=== PATIENT | female | born 1985 | race Caucasian/White ===

== ENCOUNTER 2017-09-22 21:00 | Emergency (ER) | payer OTHER ==
[~2017-09-22] VITALS: Ht 170.2 cm; Wt 163.5 kg
[~2017-09-22 21:00] MED LIST: PREN-95
[2017-09-22 21:02] VITALS: TEMP 36.8; Ht 170.2 cm; Wt 163.5 kg
[2017-09-22] MEDS ORDERED: LEVOIUD INT UTER (21:24)
--- NOTE | 2017-09-22 21:27 | EMERGENCY ROOM VISIT NOTE ---
History First contact with patient: 21:07 Chief Complaint: COUGH Stated Complaint: CONSTANT COUGH SINCE Aug History of Present Illness The patient is a 31 year old female who presents to the Emergency Room with complaints of a persistent cough for the past 1.5 months. The patient reports that August 09 is when she first noticed symptoms. She states she was not feeling well and had cough, body aches and other symptoms. She was seen by her primary care provider and diagnosed clinically with influenza. She was placed on Tamiflu. She was seen one week later for persistent symptoms and placed on amoxicillin. She states that her cough persisted despite this course of antibiotics. She contacted her PCPs office a few weeks later and they called her in a prescription for a cough syrup with codeine. The patient states that the cough has been persistent and dry. She occasionally has a fluttering of her chest with deep cough. Her daughter was recently diagnosed with pneumonia and the patient feels her symptoms have worsened since then. The patient does report that her significant other was diagnosed with dormant TB last year after a positive PPD. He had no respiratory symptoms and was not placed on antibiotics. The patient denies chest pain, shortness of breath or abdominal pain. She denies history of GERD. She does not take any antihypertensives. Review of Systems A complete 10 point review of systems was reviewed with the patient with pertinent positives and negatives as per history of present illness. All else were negative. Social History Smoking Status: Never Smoker Current/Historical Medications Scheduled Levonorgestrel (Iud) (Mirena), 20 MCG INT UTER UD Physical Exam Vital Signs Date Time Temp Pulse Resp B/P (MAP) Pulse Ox O2 Delivery O2 Flow Rate FiO2 09/22/17 21:43 86 20 147/80 97 Room Air 09/22/17 21:43 Room Air 09/22/17 21:02 36.8 100 20 144/99 96 Room Air Physical Exam VITALS: Vitals are noted on the nurse's note and reviewed by myself. Vital signs stable. GENERAL: This is a 31-year-old female, in no acute distress, nondiaphoretic, well-developed well-nourished. SKIN: The skin was without rashes. EARS: External auditory canals clear, tympanic membranes pearly pinto without erythema or effusion bilaterally. EYES: Pupils equal round and reactive to light and accommodation. MOUTH: Mucous membranes moist. Tonsils are not enlarged. Pharynx without erythema or exudate. NECK: Supple without nuchal rigidity. No lymphadenopathy. HEART: Regular rate and rhythm without murmurs gallops or rubs. LUNGS: Clear to auscultation bilaterally without wheezes, rales or rhonchi. No retractions or accessory muscle use. NEURO: Patient was alert and oriented to person place and time. Medical Decision & Procedures ECG Rate (beats per minute): 78 Rhythm: normal sinus Findings: no acute ischemic change, no ectopy Medical Decision Differential diagnosis includes pneumonia, bronchitis, asthma, GERD, upper respiratory infection, among others. The patient was evaluated as above. Chest x-ray was performed and read by radiology with no focal infiltrates. There was some perihilar thickening. EKG was performed due to patient's complaint of occasional fluttering of the chest and shows a normal sinus rhythm. Patient may be having some PVCs when the symptoms occur. The patient has been on amoxicillin for her symptoms. I do feel that at this point, a course of azithromycin may benefit the patient as this will have better coverage of atypical organisms. Patient has follow-up scheduled with her primary care provider and if symptoms are persistent she may need to undergo further testing including labs, CT of the chest, possibly endoscopy. There could be a component of acid reflux to the patient's symptoms. Her oxygen saturations are normal and I do not feel this testing is necessary at this time. She was advised to return here if she has worsening of her current condition or new/concerning symptoms. She verbalized understanding of my assessment and treatment plan was discharged home in good condition. Medication Reconcilliation Current Medication List: was personally reviewed by me Blood Pressure Screening Patient's blood pressure: Elevated blood pressure Blood pressure disposition: Elevated BP felt to be situational Impression Primary Impression: Persistent cough Departure Information Dispostion Home / Self-Care Condition GOOD Prescriptions Azithromycin (Zithromax) 250 Mg Tab 250 MG PO DAILY for 4 Days, #4 TAB Prov: Lizeth Preciado .DEMI 09/22/17 Referrals Ben Fuentes M.D. (PCP) Patient Instructions My [facility] Additional Instructions You were prescribed Zithromax to be taken as prescribed. This is an antibiotic. All antibiotics have the potential to cause diarrhea. Stop this medication and contact a medical provider if you were to develop any significant adverse side effects including: wheezing, shortness of breath, passing out, vomiting, or a diffuse rash. Always take antibiotics as directed and COMPLETE the ENTIRE course regardless of the improvement of your symptoms. Follow-up with your primary care provider as scheduled. If symptoms persist despite this antibiotic, you may need further workup. Symptoms could also be reflective of acid reflux. Return to the emergency department with worsening symptoms, shortness of breath or any other new/concerning symptoms.
[2017-09-22 21:43] VITALS: BP 147/80; PULSE 86; O2SAT 97
--- NOTE | 2017-09-22 21:47 | DIAGNOSTIC IMAGING REPORT ---
CHEST 2 VIEWS ROUTINE CLINICAL HISTORY: 31 years-old Female presenting with persistent cough. TECHNIQUE: PA and lateral views of the chest were obtained. COMPARISON: None. FINDINGS: Cardiomediastinal silhouette normal. Prominent lindsay. Lungs and pleural spaces clear. Osseous structures normal. Upper abdomen normal. IMPRESSION: 1. Prominence of the lindsay may relate to prominent pulmonary vasculature or reactive lymphadenopathy. No focal infiltrate to suggest pneumonia. Electronically signed by: Ben Ramirez M.D. 09/22/2017 9:46 PM Dictated Date/Time: 09/22/2017 9:45 PM
[2017-09-22] MEDS ORDERED: AZITHROMYCIN 250 MG TAB PO STA (22:00)
[2017-09-22] MEDS ORDERED: AZIT250T PO (22:05)
== END 2017-09-22 22:13 | disposition home or self-care (01) ==
LOC: C.EDB 21:01
DX: R05 Cough (principal)